=== PATIENT | male | born 1985 | race Caucasian/White ===

== ENCOUNTER 2020-12-15 13:20 | Emergency (ER) | payer BC ==
[~2020-12-15] VITALS: Ht 177.8 cm; Wt 64.9 kg
[2020-12-15 13:29] VITALS: BP 117/70
[2020-12-15] MEDS ORDERED: IBUP-1955 PO (14:32)
--- NOTE | 2020-12-15 15:08 | NUR ---
dc home by Dion Benavides
== END 2020-12-15 15:09 | disposition home or self-care (01) ==
LOC: ER 14:32
DX: S93.491A Sprain of other ligament of right ankle, initial encounter (principal); X50.1XXA Overexertion from prolonged static or awkward postures, initial encounter; Y93.02 Activity, running; Y92.89 Other specified places as the place of occurrence of the external cause; Y99.8 Other external cause status
CPT/HCPCS: 73610-TC; 73630-TC